=== PATIENT | male | born 1945 | race Caucasian/White ===

== ENCOUNTER 2025-09-11 17:36 | Emergency (ER) | payer OTHER, SELFPAY ==
[2025-09-11 17:42] VITALS: BP 141/73; PULSE 75; TEMP 36.6; O2SAT 98; BMI 29.0
[2025-09-11 18:25] LABS: Hematocrit 45.9 % (42.0-54.0); Hemoglobin 15.5 g/dL (14.0-18.0); Immature Granulocytes Abs Auto 0.01 10^3/uL (0.00-0.03); Immature Granulocytes Pct Auto 0.1 % (0.0-0.5); Lymphocytes Absolute Auto 1.6 10^3/uL (1.2-3.8); Mean Corpuscular HGB Conc 33.8 g/dL (29.9-35.2); Mean Corpuscular Hemoglobin 31.1 pg (25.9-34.0); Mean Corpuscular Volume 92.2 fL (80.0-94.0); Platelet Count 191 10^3/uL (150-450); Red Blood Count 4.98 10^6/uL (4.70-6.10); White Blood Count 8.2 10^3/uL (4.0-11.0)
[2025-09-11 18:38] LABS: Alanine Aminotransferase 15 U/L (16-63); Albumin Globulin Ratio 1.1; Albumin Level 3.8 g/dL (3.4-5.0); Alkaline Phosphatase 87 U/L (46-116); Anion Gap 14.2; Aspartate Amino Transferase 20 U/L (15-37); Blood Urea Nitrogen 28.0 mg/dL (7.0-18.0); Calcium 9.2 mg/dL (8.5-10.1); Carbon Dioxide 31.0 mmol/L (21.0-32.0); Chloride 102 mmol/L (98-107); Estimated GFR (African America >60 (>=60 mL/min/1.73m^2); Estimated GFR (Non-African Ame >60 (>=60 mL/min/1.73m^2); Globulin 3.5 g/dL; Glucose 163 mg/dL (74-106); Potassium 4.2 mmol/L (3.5-5.1); Sodium 143 mmol/L (136-145); Total Protein 7.3 g/dL (6.4-8.2)
[2025-09-11 18:39] LABS: INR 1.10; Partial Thromboplastin Time 27.6 sec (22.3-36.2); Prothrombin Time 11.5 sec (9.0-11.6)
--- OUTSIDE RECORDS SUMMARY | 2025-09-11 18:42 | XMS_ITS | Encounter Summary ---
Author Organization [facility] tem Address [id number] [address] [place] [address] Care Team Providers Care Prefabricator Name Role Phone Debbie Díaz DO Primary Care Provider [phone] Encounter Details DateTypeDepartmentCare Team (Latest Contact Info)Wrzjshliyku89/25/2025Telephone [facility] - Pharmacy Medication Management [address] [place] [address] Santos Mckeon, [facility] [address] [place], [place] [phone]- Social History Tobacco UseTypesPacks/DayYears UsedDateSmoking Tobacco: NeverSmokeless Tobacco: NeverAlcohol UseStandard Drinks/WeekCommentsNever0 (1 standard drink = 0.6 oz pure alcohol)PHQ-2AnswerDate RecordedTotal Dqhnv03110/24/2024UDIT-CAnswerDate RecordedQ1: How often do you have a drink containing alcohol?Never08/24/2025Q2: How many drinks containing alcohol do you have on a typical day when you are drinking?Patient does not drink08/24/2025Q3: How often do you have six or more drinks on one occasion?Never08/24/2025PRAPARE - TransportationAnswerDate RecordedIn the past 12 months, has lack of transportation kept you from medical appointments or from getting medications?No08/24/2025In the past 12 months, has lack of transportation kept you from meetings, work, or from getting things needed for daily living?No08/24/2025HC UtilitiesAnswerDate RecordedIn the past 12 months has the electric, gas, oil, or water company threatened to shut off services in your home?No08/24/2025Housing InstabilityAnswerDate RecordedAre you worried or concerned that in the next two months you may not have stable housing that you own, rent or stay in as a part of a household?No08/24/2025hildcare AnswerDate YhrqisydMefgurqubCxnbzij97/02/2019EmploymentAnswerDate Recorded TnkeliibvjQusbgfk72/02/2019Hunger ScreeningAnswerDate RecordedWithin the past 12 months we worried whether our food would run out before we got money to buy more.Never True08/24/2025Within the past 12 months the food we bought just didn't last and we didn't have money to get more.Never True08/24/2025Purpose - LifeAnswerDate RecordedPurpose and direction in pzdgGzuausj67/21/2021ex and Gender InformationValueDate RecordedSex Assigned at WsfjaWqmi32/16/2019 8:58 PM ESTLegal ZlrHvlq7805/11/2015 11:25 AM EDTGender QwovfugxZcqe84/16/2019 8:58 PM EST Sexual TyxywqnuhyeXygjaxuy37/23/2023 3:33 AM EDTdocumented as of this encounter Miscellaneous Notes * Telephone Encounter - Santos Chaveznimeshkinsey, [facility] - 08/30/2025 10:02 AM EST Message received from inpatient pharmacy patient may benefit from [facility] services because he has beenstarted on Eliquis and also has diabetes. Patient admitted 08/23/25-08/25/25. Patient presented with leg pain and swelling. He did have recent fibula fracture. Venous duplex showed acute left tibioperoneal DVT and CT of chest showed small upper left lobe segmental PE without right heart strain. Patient discharged on Eliquis 10 mg twice daily for seven days and then 5 mg twice daily. For his diabetes he is taking metformin 1000 mg twice daily, glipizide 5 mg twice daily, and pioglitazone 45 mg daily. No recent A1C found in Epic. Patient has [facility] visit on 09/22/25. Called patient to discuss. He reports no issues at this time. [facility]. Appears clot may have been provoked so thinking he will be on3-6 months. 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 Discussed aspirin should be continued and can be taken with Eliquis. Recommend he monitor for unusual bleeding orbruising. Patient does not wish to follow with [facility] at this time. documented in this encounter Plan of Treatment DateTypeDepartmentCare Team (Latest Contact Info)Vjfnvyriyfa00/18/2025 8:45 AM ESTOffice Visit [facility] [address] [place] [address] 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, LOAN SERVICING REPRESENTATIVE-LYE MACHINE OPERATOR [address] [address] documented as of this encounter Goals GoalPatient Goal TypeAssociated ProblemsRecent ProgressPatient-Stated?Author <enter goal here> Whitney Gee, BRIT Note: Evaluation of progress towards goal: home self care and family support documented as of this encounter Visit Diagnoses Not on filedocumented in this encounter Additional Health Concerns AssessmentNoted TimePHQ-9 Depression Total Score: 10:05 AM EST documented as of this encounter Care Teams Team MemberRelationshipSpecialtyStart DateEnd Date Debbie Díaz DO [address] [place] [address] PCP - GeneralFamily Vqzoeqyd35/17/25documented as of this encounter
--- OUTSIDE RECORDS SUMMARY | 2025-09-11 18:42 | XMS_ITS | Clinical Summary ---
Author Organization [employer] tem Address [id number] [address] [place] [address] Care Team Providers Care Labeling Specialist Name Role Phone Debbie Díaz DO Primary Care Provider [phone] Allergies Active AllergyReactionsCriticalityNoted DateComments Sulfamethoxazole-SmdouuqwyycaZknjl18/23/2023EmpagliflozinOther (See Comments) Nmetfp550807EvzwdUbxqpea49/23/2023 Burning sensation MllgprnzIirtvcd97/23/2023 Medications MedicationSigDispense QuantityRefillsLast FilledStart DateEnd DateStatus pioglitazone (ACTOS) 45 mg tablet Indications:22.5mgTake 1 tablet (45 mg total) by mouth in the morning. Indications: 22.5mg.Active ytmlfmke-dimk-bhj-folic acid (swgmmyglvpqm-vaca-ygoxlqhx-folic acid) 3,500-18-0.4 unit-mg-mg tablet,chewable Chew 1 capsule and swallow in the morning.Active metoprolol succinate XL (TOPROL-XL) 25 mg 24 hr tablet Take 1 tablet (25 mg total) by mouth in the morning.12/09/2017Active rosuvastatin (CRESTOR) 10 mg tablet Take 1 tablet (10 mg total) by mouth once daily at bedtime.Active glipiZIDE (GLUCOTROL) 5 mg tablet Take 1 tablet (5 mg total) by mouth in the morning and 1 tablet (5 mg total) in the evening. Take before meals.Active metFORMIN (GLUCOPHAGE) 850 mg tablet Take 1,000 mg by mouth in the morning and 1,000 mg in the evening. Take with meals.Active sennosides-docusate sodium (SENNA WITH DOCUSATE SODIUM) 8.6-50 mg Take 2 tablets by mouth in the morning.Active zinc gluconate 50 mg tablet Take 1 tablet (50 mg total) by mouth in the morning.Active ascorbic acid, vitamin C, (ascorbic acid) 250 mg tablet,chewable Chew 1 tablet and swallow in the morning.Active vitamin E, dl,tocopheryl acet, (vitamin E, dl, acetate,) 180 mg (400 unit) capsule Take 1 capsule (400 Units total) by mouth in the morning.Active apixaban (ELIQUIS DVT-PE TREAT 30D START) 5 mg (74 tabs) tablets,dose pack tablet Take 2 tablets by mouth twice daily for 7 days, then take 1 tablet twice daily 74 tablet 08/24/2025tive gabapentin (NEURONTIN) 300 mg capsule Take 1 capsule (300 mg total) by mouth 3 (three) times a day.08/25/2025 Discontinued(Stop Taking at Discharge) CINNAMON BARK ORAL Take 1 tablet by mouth in the morning. 1,000 mg.08/25/2025Discontinued(Stop Taking at Discharge) pyridoxine, vitamin B6, (B-6) 100 mg tablet Take 1 tablet (100 mg total) by mouth in the morning.08/25/2025Discontinued(Stop Taking at Discharge) riTUXimab (RITUXAN) 10 mg/mL chemo injection Infuse into a venous catheter.08/25/2025Discontinued(Stop Taking at Discharge) cycloPHOSphamide (CYTOXAN) 20 mg/mL chemo injection Infuse into a venous catheter once.08/25/2025Discontinued(Stop Taking at Discharge) acyclovir (ZOVIRAX) 400 mg tablet Take 1 tablet (400 mg total) by mouth in the morning and 1 tablet (400 mg total) before bedtime.08/25/2025Discontinued(Stop Taking at Discharge) alogliptin 25 mg tablet Indications:type 2 diabetes mellitusTake 25 mg by mouth in the morning. Indications: type 2 diabetes mellitus.08/25/2025Discontinued(Stop Taking at Discharge) doxycycline (VIBRA-TABS) 100 mg tablet Take 1 tablet (100 mg total) by mouth in the morning and 1 tablet (100 mg total) before bedtime.08/25/2025Discontinued(Stop Taking at Discharge) mupirocin (BACTROBAN) 2 % ointment Apply 1 Application topically in the morning. Apply on wound on lower leg and blister on finger .08/25/2025Discontinued(Stop Taking at Discharge) cyanocobalamin (vitamin B-12) 1000 MCG tablet Take 1 tablet (1,000 mcg total) by mouth in the morning. Takes 5,000 mg. 08/25/2025Discontinued(Stop Taking at Discharge) NON FORMULARY Take 1 each by mouth in the morning and at bedtime. Med Name: folic acid 400 mcg 08/25/2025Discontinued(Stop Taking at Discharge) acidophilus-pectin, citrus 25 million cell -100 mg tablet Take 1 tablet by mouth daily with breakfast.08/25/2025Discontinued(Stop Taking at Discharge) Active Problems ProblemNoted DateDiagnosed DatePulmonary odrktv6910/23/2024Rectal bleeding 05/05/2023I bleed05/05/20231166Zylhyjgstsz12/31/2023Intractable low back pain 03/28/20232412Gtknvropu77/24/2018Atherosclerosis of coronary artery bypass graft of [place] heart without angina xwusvrue58/08/5810Tshp32/01/2017Diabetes mellitus type 2, controlled Resolved Problems ProblemNoted DateDiagnosed DateResolved DateAcute respiratory failure with hypoxia and lmlhqfryxmo45Shock qgsqxjjgenj51 Diabetes 1.5, managed as type /Unstable gebirl7305/05/2017 05/29/2018Chest pain05/01/HTN (hypertension)06/13/2017 Encounters DateTypeDepartmentCare OeosSbzkqluufqm68/25/2025Telephone [facility] - Pharmacy Medication Management [address] [place] [address] Santos Mckeon, [facility] 08/23/2025 6:31 PM EST - 08/25/2025 2:14 PM ESTHospital Encounter [facility] - [facility] [address] Acute [address] [place] [phone] Robina Carter MD Ibrahim, Rahaf N, MD Amin, Isidro Mccormack MD Single subsegmental pulmonary embolism without acute cor pulmonale (CMS-HCC) (Primary Dx) Discharge Disposition: Home08/22/2025 4:28 PM EST - 08/23/2025 5:28 PM EST Emergency [facility] - Emergency [address] [place] [address] Marcus Reid DO Single subsegmental pulmonary embolism without acute cor pulmonale (CMS-HCC) (Primary Dx) Discharge Disposition: [facility]08/22/2025 2:00 PM EST - 08/22/2025 4:27 PM ESTHospital Encounter [facility] - Vascular [address] [place] [phone] Localized swelling, mass and lump, lower limb, left; Pain of left calf; Closed nondisplaced fracture of lateral malleolus of left fibula, initial encounter Discharge Disposition: Home08/22/20257627Jcdlst88/03/2025 2:20 PM EST - 08/08/2025 4:26 PM ESTEmergency [facility] - Emergency [address] [place] [phone] Closed fracture of left ankle, initial encounter (Primary Dx) Discharge Disposition: Home08/08/2025Travelfrom Last 3 Months Immunizations ImmunizationAdministration DatesNext DueCOVID-19, mRNA, LNP-S, PF, 100mcg/0.5mL Dose01/30/2021,01/02/2021Influenza High Dose Preservative Free IM06/29/2024 Influenza Vaccine, Quadrivalent, Dvyhvmavoq52/24/2023Influenza, High-dose, Rjadxhjvrglj09/27/2023,12/08/2020Influenza, Trivalent, Bhvogvuaqx98/21/2025 Influenza, Cgxhyfjfjob18/22/2021,06/27/2018Pneumococcal Conjugate 20-valent 2RSV, bivalent, protein subunit RSVpreF, diluent reconstituted, 0.5 mL, PF041836Rseb04/21/2021,12/08/2020Zoster Vaccine Secksdsvaqb06/31/2023, 04/19/2022,08/18/2019 Family History Medical HistoryRelationNameCommentsHeart attackBrotherRelationNameStatusComments BrotherDeceasedFatherDeceasedMotherDeceased Social History Tobacco UseTypesPacks/DayYears UsedDateSmoking Tobacco: NeverSmokeless Tobacco: Never Tobacco Cessation:Counseling Given: Not Answered Alcohol UseStandard Drinks/WeekCommentsNever0 (1 standard drink = 0.6 oz pure alcohol)PHQ-2AnswerDate RecordedTotal Uktud74910/24/2024UDIT-CAnswerDate Recorded Q1: How often do you have a drink containing alcohol?Never08/24/2025Q2: How many drinks containing alcohol do you have on a typical day when you are drinking? Patient does not drink08/24/2025Q3: How often do you [...] stay in as a part of a household?No08/24/2025hildcareAnswerDate FqcnjjxaEjpwuqbwhPvojnqx66/02/2019EmploymentAnswerDate RecordedEmploymentUnknown 03/07/2019Hunger ScreeningAnswerDate RecordedWithin the past 12 months we worried whether our food would run out before we got money to buy more.Never True08/24/2025Within the past 12 months the food we bought just didn't last and we didn't have money to get more.Never True08/24/2025Purpose - LifeAnswerDate RecordedPurpose and direction in thmwQrzbvzj10/21/2021ex and Gender Information ValueDate RecordedSex Assigned at BjcquTkci82/16/2019 8:58 PM ESTLegal SexMale 05/11/2015 11:25 AM EDTGender BswvgskuZqrz22/16/2019 8:58 PM ESTSexual GwxyojtikwiIuislcgy32/23/2023 3:33 AM EDT Last Filed Vital Signs Vital SignReadingTime TakenCommentsBlood Zesqihms747/8508/25/2025 12:58 PM EST Sncoe519008/25/2025 12:58 PM KWDFnurjdcnqcz46.7 ??C (98 ??F)08/25/2025 12:58 PM ESTRespiratory Hnkf166408/25/2025 12:58 PM ESTOxygen Hkpokrdzal52%08/25/2025 12:58 PM ESTInhaled Oxygen Concentration--Wfdjee88.4 kg (190 lb 7.6 oz)08/25/2025 4:38 AM WQMKcymtb094.2 cm (5' 7 )08/24/2025 10:07 AM ESTBody Mass Index29.83 08/24/2025 10:07 AM EST Plan of Treatment DateTypeDepartmentCare Team (Latest Contact Info)Eljrklggjer08/18/2025 8:45 AM ESTOffice Visit [facility] [place] [address] [place] [address] 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, 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 [address] [phone] Health MaintenanceDue DateLast DoneCommentsFall Risk Gtsusjcmt01/18/2008COVID-19 Vaccine (2024- season)509/, 12/31/2023, 10/29/2022, Additional history existsTobacco Cqaspztow71/Depression Nhlvckvgu94DTaP,Tdap and Td Vaccines (3 - Td or Tdap) , 12/08/2020Zoster (Shingles) SpugqoxTqgvldzwh95/31/2023, 04/19/2022, 08/18/2019RSV ( or age 60+ yrs)Yqcuevcqi11/01/2025Influenza SrtwcvzUegwqmbot83/21/2025, 06/29/2024, 07/02/2023, Additional history exists Goals GoalPatient Goal TypeAssociated ProblemsRecent ProgressPatient-Stated?Author <enter goal here> Whitney Gee RN Note: Evaluation of progress towards goal: home self care and family support Medical Devices Not on file Procedures Procedure NamePriorityDate/TimeAssociated DiagnosisCommentsBEDSIDE GLUCOSE Ujizise3908/25/2025 12:57 PM EST BEDSIDE BDUWKHWAbbtumk64/20/2025 7:57 AM EST BASIC METABOLIC NYKHIBlftjoh58/20/2025 7:12 AM EST CBC WITH AUTO EQDYYFLNKKSGBuhffdp79/20/2025 7:12 AM EST HEPARIN ANTI XA, QVEIMNIIEJUQILZbeceus77/20/2025 7:12 AM EST PLATELET LKUCNSvbbbov10/20/2025 5:28 AM EST LILHMRWACKBvmbome88/20/2025 5:28 AM EST EXTRA TUBES PST SYEKlozfrd18/20/2025 5:24 AM EST EXTRA HVDHHQfkekwx32/20/2025 5:24 AM EST HEPARIN ANTI XA, VYBPPYXQSIVSRJIatopyj58/19/2025 11:06 PM EST BEDSIDE OJDNBWJMezerov90/19/2025 9:50 PM EST BEDSIDE PSZZVHYZembanv30/19/2025 4:32 PM EST HEPARIN ANTI XA, WEJLESLAUICMTMYxipshq53/19/2025 4:29 PM EST ECHO COMPLETE WO LDMYNVIQFuddqeg45/19/2025 4:22 PM EST BEDSIDE NKHXJDRUdnwnxn88/19/2025 8:14 AM EST HEPARIN ANTI XA, GFXGEFNSSHPCLRAiolixf11/19/2025 7:24 AM EST CBC WITH AUTO DQSZCQIXBSVMPkpvoyf07/19/2025 7:24 AM EST COMPREHENSIVE METABOLIC ENXDUHhphtre02/19/2025 7:24 AM EST PROTIME & DTKTdpnbsj55/18/2025 10:44 PM EST JFMLItylunp19/18/2025 10:44 PM EST PLATELET XJBDPYhvzkug15/18/2025 10:44 PM EST EINLUBCQIURigbscy45/18/2025 10:44 PM EST HEPARIN ANTI XA, KPYWOIBPOBRESTJanowoe22/18/2025 10:44 PM EST PULSE OXIMETRY, LMEUCuxncmi55/18/2025 7:15 PM ESTHEPARIN ANTI XA, UNFRACTIONATED STAT110/23/2024 3:23 PM EST CBC WITH AUTO MKFTNOIHDWTLTTZD42/18/2025 8:18 AM EST BASIC METABOLIC GCKMBKRSV18/18/2025 8:17 AM EST HEPARIN ANTI XA, HVYEMFJDNUKSGXPTOC16/18/2025 8:17 AM EST PLATELET BOBOLUEOZ23/18/2025 4:53 AM EST DWAYUQRWDOQSTP31/18/2025 4:53 AM EST HEPARIN ANTI XA, APXUZBZLPDNCSVTCYC02/17/2025 11:48 PM EST XR ANKLE LT 2 IZZIUPN00/17/2025 6:[address] CTA OIXGDJKDR31/17/2025 6:10 PM EST TROP I, HIGH SENSITIVITY 1 CGQNZTTR68/17/2025 6:06 PM EST ECG 12-HSKTHRXX34/17/2025 5:10 PM ESTEXTRA TUBES BLUE EPRJugzuam88/17/2025 5:06 PM EST PROTIME & INRAdd-On08/22/2025 5:06 PM EST APTTAdd-On08/22/2025 5:06 PM EST EXTRA TPJIHWhyxdoq88/17/2025 5:06 PM EST TROPONIN I, HIGH SENSITIVITY 0 OGBDHNEO72/17/2025 4:55 PM EST TROPONIN I, HIGH SENSITIVITY 0 GUXQBMCK85/17/2025 4:55 PM EST BASIC METABOLIC URIDVJQDJ88/17/2025 4:55 PM EST CBC WITH AUTO SUHFMGHGXYIKIQJT49/17/2025 4:55 PM EST VASC VENOUS DUPLEX LOWER HUZQQIPD63/17/2025 2:57 PM EST Localized swelling, mass and lump, lower limb, left Pain of left calf Closed nondisplaced fracture of lateral malleolus of left fibula, initial encounter XR ANKLE LT MIN 3 DGHFJBM73/03/2025 2:25 PM EST from Last 3 Months Results * (ABNORMAL) Bedside Glucose *Place/Obtain serum glucose if >500 per glucometer. (08/25/2025 12:57PM EST) Only the most recent of5 resultswithin the time period is included. ComponentValueRef RangeTest MethodAnalysis TimePerformed AtPathologist Signature Bedside Glucose (POC)180(H)65 - 99 mg/dL08/25/2025 1:03 PM [facility] (Source)Anatomical Location / LateralityCollection Method / VolumeCollection TimeReceived Timearterial/ndhqsoojg70/20/2025 12:57 PM EST 08/25/2025 1:03 PM EST Narrative Authorizing ProviderResult TypeResult StatusIsidro Aguilar MDPOINT OF CARE TEST ORDERABLESFinal ResultPerforming OrganizationAddressCity/State/ZIP Code Phone Number [facility] [address] [facility] [place] [address], * (ABNORMAL) CBC auto differential (08/25/2025 7:12 AM EST) Only the most recent of4 resultswithin the time period is included. ComponentValueRef RangeTest MethodAnalysis TimePerformed AtPathologist Signature WBC5.74 - 11 10^9/L110/25/2024 7:36 AM [facility] LABORATORYRBC Count4.474.1 - 5.7 10^12/L110/25/2024 7:36 AM [facility] LYDEMOJNJAQzktoriubc86.613 - 17 g/dL08/25/2025 7:36 AM [facility] HCCFQKVDHRZxevvftocj57.739 - 50 %08/25/2025 7:36 AM [facility] WRTMELRBFHNKF3082 - 100 fL08/25/2025 7:36 AM [facility] XYWIGYMIJCXYT20.427 - 34 pg08/25/2025 7:36 AM [facility] LMAOCBBSUUJLID92.532 - 36 g/dL08/25/2025 7:36 AM [facility] DQYPZSROKOCPR82.011.5 - 15 %08/25/2025 7:36 AM [facility] LABORATORYPlatelet Zfgid401(L)150 - 450 10^9/L110/25/2024 7:36 AM [facility] LABORATORYMPV9.37 - 12 fL08/25/2025 7:36 AM [facility] LABORATORYNeutrophils %62.8%08/25/2025 7:36 AM [facility] LABORATORYLymphocytes %21.4%08/25/2025 7:36 AM [facility] LABORATORYMonocytes %11.7%08/25/2025 7:36 AM [facility] LABORATORYEosinophils %3.5%08/25/2025 7:36 AM [facility] LABORATORYBasophils %0.6%08/25/2025 7:36 AM [facility] LABORATORYNeutrophils Absolute (A)3.61.5 - 6.6 10^08/25/2025 7:36 AM [facility] LABORATORYLymphocytes Absolute1.21.0 - 3.5 10^9/L 08/25/2025 7:36 AM [facility] LABORATORYMonocytes Absolute0.7 0.0 - 0.9 10^08/25/2025 7:36 AM [facility] Eosinophils Absolute0.20.0 - 0.4 10^08/25/2025 7:36 AM [facility] LABORATORYBasophils Absolute0.00.0 - 0.2 10^08/25/2025 7:36 AM [facility] LABORATORYDifferential TypeAUTOMATED DIFFERENTIAL 08/25/2025 7:36 AM [facility] LABORATORYSpecimen (Source) Anatomical Location / LateralityCollection Method / VolumeCollection Time Received TimeBloodVenous blood / UnknownVenipuncture / Mlrebzw2508/25/2025 7:12 AM EST08/25/2025 7:22 AM EST Narrative Authorizing ProviderResult TypeResult StatusAli Michael [facility] BLOOD ORDERABLES Final ResultPerforming OrganizationAddressCity/State/ZIP CodePhone Number [facility] [address] [place] [address], [place] [phone] * (ABNORMAL) Anti XA unfractionated heparin (08/25/2025 7:12 AM EST) Only the most recent of8 resultswithin the time period is included. ComponentValueRef RangeTest MethodAnalysis TimePerformed AtPathologist Signature ANTI XA UFH0.71(H)0.30 - 0.70 IU/mL08/25/2025 7:45 AM [facility] LABORATORYComment: Optimal time for testing is 6 hrs post dosage This test is specific for monitoring patients on UFH, and is not recommended for use with other Anti-Xa medications. Specimen (Source)Anatomical Location / LateralityCollection Method / Volume Collection TimeReceived TimeBloodVenous blood / UnknownVenipuncture / Unknown 08/25/2025 7:12 AM EST08/25/2025 7:22 AM EST Narrative Authorizing ProviderResult TypeResult StatusIsidro Aguilar [facility] BLOOD ORDERABLESFinal ResultPerforming OrganizationAddressCity/State/ZIP CodePhone Number [facility] [address] [place] [address], * (ABNORMAL) Basic Metabolic Panel (08/25/2025 7:12 AM EST) Only the most recent of3 resultswithin the time period is included. ComponentValueRef RangeTest MethodAnalysis TimePerformed AtPathologist Signature FOAGDB607649 - 146 mmol/L110/25/2024 7:54 AM [facility] LABORATORYPOTASSIUM3.83.5 - 5.0 mmol/L110/25/2024 7:54 AM [facility] BUFHHAMFCZJYFPMPCL51991 - 109 mmol/L110/25/2024 7:54 AM [facility] LABORATORYCARBON DGXCVYO0458 - 32 mmol/L110/25/2024 7:54 AM [facility] LABORATORYANION GAP85 - 15 mmol/L110/25/2024 7:54 AM [facility] LABORATORYBLOOD UREA WZSUVXYB649 - 27 mg/dL08/25/2025 7:54 AM [facility] LABORATORYCREATININE0.800.60 - 1.30 mg/dL08/25/2025 7:54 AM [facility] LABORATORYComment:METHOD TRACEABLE TO IDMS AICUULNOJRTYFIN535(H)65 - 99 mg/dL08/25/2025 7:54 AM [facility] LABORATORYCALCIUM9.18.5 - 10.5 mg/dL08/25/2025 7:54 AM [facility] LABORATORYEGFR Non-Race Uejznvheq76>=60 ml/min/1.73sq.m110/25/2024 7:54 AM [facility] LABORATORYComment: Reported eGFR is based on the CKD-EPI 2020 equation that does not use a race coefficient. Specimen (Source)Anatomical Location / LateralityCollection Method / Volume Collection TimeReceived TimeBloodVenous blood / UnknownVenipuncture / Unknown 08/25/2025 7:12 AM EST08/25/2025 7:22 AM EST Narrative Authorizing ProviderResult TypeResult StatusGerman HURTADO BLOOD ORDERABLES Final ResultPerforming OrganizationAddressCity/State/ZIP CodePhone Number [facility] [address] [place] [address], [place] [phone] * (ABNORMAL) Platelet count (08/25/2025 5:28 AM EST) Only the most recent of3 resultswithin the time period is included. ComponentValueRef RangeTest MethodAnalysis TimePerformed AtPathologist Signature Platelet Cjleb354(L)150 - 450 10^9/L110/25/2024 6:02 AM [facility] LABORATORYMPV9.37 - 12 fL08/25/2025 6:02 AM [facility] LABORATORYSpecimen (Source)Anatomical Location / LateralityCollection Method / VolumeCollection TimeReceived TimeBloodVenous blood / UnknownVenipuncture / Dhnwkqx5708/25/2025 5:28 AM EST08/25/2025 5:47 AM EST Narrative Authorizing ProviderResult TypeResult StatusRobina HURTADO BLOOD ORDERABLES Final ResultPerforming OrganizationAddressCity/State/ZIP CodePhone Number [facility] [address] [place] [address], * Hemoglobin (08/25/2025 5:28 AM EST) Only the most recent of3 resultswithin the time period is included. ComponentValueRef RangeTest MethodAnalysis TimePerformed AtPathologist Signature Myyadrixbc37.713 - 17 g/dL08/25/2025 6:02 AM [facility] LABORATORYSpecimen (Source)Anatomical Location / LateralityCollection Method / VolumeCollection TimeReceived TimeBloodVenous blood / UnknownVenipuncture / Wkhxbhr4808/25/2025 5:28 AM EST08/25/2025 5:47 AM EST Narrative Authorizing ProviderResult TypeResult StatusRobina HURTADO BLOOD ORDERABLES Final ResultPerforming OrganizationAddressCity/State/ZIP CodePhone Number [facility] [address] [place] [address], * PST TOP (08/25/2025 5:24 AM EST)ComponentValueRef RangeTest MethodAnalysis TimePerformed AtPathologist SignatureExtra TubeAuto Glswdwva51/20/2025 7:01 AM [facility] LABORATORYSpecimen (Source)Anatomical Location / LateralityCollection Method / VolumeCollection TimeReceived TimeBloodVenous blood / Trnggdg8508/25/2025 5:24 AM EST08/25/2025 5:47 AM EST Narrative Authorizing ProviderResult TypeResult StatusIsidro HURTADO BLOOD ORDERABLESFinal ResultPerforming OrganizationAddressCity/State/ZIP CodePhone Number [facility] [address] [place] [address], [place] [phone] * Echo complete W/O contrast (08/24/2025 4:22 PM EST)ComponentValueRef RangeTest MethodAnalysis TimePerformed AtPathologist SignatureLV Systolic Xuwxju73.90mL OUWXURFNE55%FRJWPFCPP4473 - 44 %XCELERALV Diastolic Imtchh31.40mLXCELERALVIDd 4.104.85 - 6.74 cmXCELERALVIDs2.702.86 - 4.32 cmXCELERAIVS1.000.6 - 1.1 cm XCELERAPW0.900.6 - 1.1 cmXCELERALVOT diameter1.60slTICASSXLMS51.70cm/sXCELERA MV TDI E' (medial)5.98cm/sXCELERALA Volume Index29.4mL/x9BMACWNVT/A ratio1.01 XCELERAE wave deceleration wmhv766.00msecXCELERAMV Peak E Jqe592.00cm/sXCELERA MV Peak A Wac650.00cm/sXCELERALA size4.70cmXCELERALA xglwul52.37ks3JXOXXKGUI diastolic dimension (basal)39.0bpCTCYUHGHDAVN6.35cmXCELERAAV peak jtm235.00 cm/sXCELERAAV VTI26.00cmXCELERAAV mean gradient3.00mmHgXCELERAAV peak gradient 6.05mmHgXCELERAMV pressure 1/2 time43.00msXCELERAMV valve area p 1/2 method 5.00io3CBVXAXHVH peak gradient2.53mmHgXCELERALV ESV A2C54.50mLXCELERALV ESV A4C58.50mLXCELERALV RWT 2D43.90XCELERAEcho EF Rplvvwevh60%XCELERALeft Ventricle Ilwp622.192098087120736wFIVMCZYNlulzskvgayztlhj Septum Diastolic Thickness by 0M91qjSZKRPQPFNDI d3.9cmXCELERARA area12.1am5QMVPXJMOtkkef Sinus Valsalva3.60cmXCELERAAscending aorta3.80cmXCELERAAo asc z-score5.06cmXCELERA ZLVIDS-2.08XCELERAZLVIDD-3.32XCELERAAnatomical RegionLateralityModalityChest N/AUltrasoundSpecimen (Source)Anatomical Location / LateralityCollection Method / VolumeCollection TimeReceived Time Narrative 08/24/2025 5:02 PM EST Left Ventricle: Left ventricle is small. Systolic function is normal with an ejection fraction of 60-65%. Left Ventricle Left ventricle is small. Wall thickness is normal. Systolic function is normal with an ejection fraction of 60-65%. No segmental wall motion abnormalities. Grade I diastolic dysfunction (impaired relaxation) is present. Lateral E' is 10.70 cm/s. Medial E' is 5.98 cm/s. Right Ventricle Right ventricular size appears normal. The right ventricular basal diameter is 39.0 mm. Systolic function is normal. Left Atrium Left atrium is normal in size. Left atrium volume index is normal. The left atrial volume index is 29.4 mL/m2. Right Atrium Right atrium is normal in size. The right atrial area is 12.4 cm2. IVC/SVC IVC is not well visualized. Mitral Valve The leaflets are mildly thickened. There is no regurgitation or stenosis. Tricuspid Valve The leaflets are not thickened. There is trace regurgitation. There is no evidence of tricuspid valve stenosis. Insufficient regurgitant jet to assess right ventricular systolic pressure. Aortic Valve The aortic valve is trileaflet. The leaflets are mildly thickened. There is no regurgitation or stenosis. Pulmonic Valve The leaflets are not thickened. There is trace regurgitation. There is no evidence of pulmonic valve stenosis. The peak gradient is 2.53 mmHg. Ascending Aorta The ascending aorta is mildly dilated. Pericardium There is no pericardial effusion. The pericardium has a fat pad. Study Details A complete echo was performed using complete 2D, color flow Doppler and spectral Doppler. During the study the apical, parasternal, subcostal and suprasternal views were captured. Wall Scoring Baseline Score Index: 1.00 The left ventricular wall motion is normal. Authorizing ProviderResult TypeResult StatusIsidro Aguilar [facility] ECHO ORDERABLESFinal Result * (ABNORMAL) Comprehensive metabolic panel (08/24/2025 7:24 AM EST)Component ValueRef RangeTest MethodAnalysis TimePerformed AtPathologist SignatureSODIUM [id number] - 146 mmol/L110/24/2024 8:16 AM [facility] POTASSIUM4.33.5 - 5.0 mmol/L110/24/2024 8:16 AM [facility] [id number] - 109 mmol/L110/24/2024 8:16 AM [facility] LABORATORYCARBON [id number] - 32 mmol/L110/24/2024 8:16 AM [facility] LABORATORYANION GAP75 - 15 mmol/L110/24/2024 8:16 AM EST [facility] LABORATORYBLOOD UREA [id number] - 27 mg/dL08/24/2025 8:16 AM [facility] LABORATORYCREATININE0.960.60 - 1.30 mg/dL 08/24/2025 8:16 AM [facility] LABORATORYComment:METHOD TRACEABLE TO IDMS NGCZUTDPUSHKIDO646(H)65 - 99 mg/dL08/24/2025 8:16 AM [facility] LABORATORYCALCIUM9.38.5 - 10.5 mg/dL08/24/2025 8:16 AM [facility] LABORATORYTOTAL PROTEIN6.16.0 - 8.0 g/dL 08/24/2025 8:16 AM [facility] LABORATORYALBUMIN3.73.2 - 5.3 g/dL08/24/2025 8:16 AM [facility] LABORATORYALKALINE KGPUFBLCTMZ4166 - 130 U/L110/24/2024 8:16 AM [facility] BFEXCLVCZYVIN94<=41 U/L110/24/2024 8:16 AM [facility] LABORATORYALT8<=40 U/L110/24/2024 8:16 AM [facility] LABORATORYBILIRUBIN,TOTAL0.80.3 - 1.2 mg/dL08/24/2025 8:16 AM [facility]ORATORYEGFR Non-Race Kbrqbnzri64>=60 ml/min/1.73sq.m 08/24/2025 8:16 AM [facility] LABORATORYComment: Reported eGFR is based on the CKD-EPI 2020 equation that does not use a race coefficient. Specimen (Source)Anatomical Location / LateralityCollection Method / Volume Collection TimeReceived TimeBloodVenous blood / UnknownVenipuncture / Unknown 08/24/2025 7:24 AM EST08/24/2025 7:42 AM EST Narrative Authorizing ProviderResult TypeResult StatusRobina HURTADO BLOOD ORDERABLES Final ResultPerforming OrganizationAddressCity/State/ZIP CodePhone Number [facility] [address] [place] [address], * (ABNORMAL) APTT (08/23/2025 10:44 PM EST) Only the most recent of2 resultswithin the time period is included. ComponentValueRef RangeTest MethodAnalysis TimePerformed AtPathologist Signature APTT>150(HH)26 - 37 sec08/23/2025 11:31 PM [facility] LABORATORYSpecimen (Source)Anatomical Location / LateralityCollection Method / VolumeCollection TimeReceived TimeBloodVenous blood / UnknownVenipuncture / Gyfhpke1608/23/2025 10:44 PM EST08/23/2025 10:51 PM EST Narrative Authorizing ProviderResult TypeResult StatusRobina HURTADO BLOOD ORDERABLES Final ResultPerforming OrganizationAddressCity/State/ZIP CodePhone Number [facility] [address] [place] [address], * Protime & INR (08/23/2025 10:44 PM EST) Only the most recent of2 resultswithin the time period is included. ComponentValueRef RangeTest MethodAnalysis TimePerformed AtPathologist Signature WCJXLSU22.39.8 - 13.2 sec08/23/2025 11:31 PM [facility] LABORATORYINR1.10.9 - 1. 11:31 PM [facility] LABORATORYSpecimen (Source)Anatomical Location / LateralityCollection Method / VolumeCollection TimeReceived TimeBloodVenous blood / UnknownVenipuncture / Dejsbml3108/23/2025 10:44 PM EST08/23/2025 10:51 PM EST Narrative Authorizing ProviderResult TypeResult StatusRobina HURTADO BLOOD ORDERABLES Final ResultPerforming OrganizationAddressCity/State/ZIP CodePhone Number [facility] [address] [place] [address], * X-ray ankle left 2 views (08/22/2025 6:23 PM EST)Anatomical RegionLaterality ModalityLower Extremities, MSK, AnkleLeftComputed RadiographySpecimen (Source) Anatomical Location / LateralityCollection Method / VolumeCollection Time Received Time08/22/2025 6:37 PM EST Narrative 08/22/2025 6:38 PM EST X-ray ankle left 2 views History of twisting injury. Known fracture. Pain COMPARISON: 08/08/2025 IMPRESSION: Spiral fracture of the distal fibula is appreciated. Alignment is unchanged. No additional fractureis seen. Atherosclerotic disease is noted Finalized by Melissa Maurice MD on 08/22/2025 6:38 PM Procedure Note Melissa Maurice MD - 08/22/2025 X-ray ankle left 2 views History of twisting injury. Known fracture. Pain COMPARISON: 08/08/2025 IMPRESSION: Spiral fracture of the distal fibula is appreciated. Alignment isunchanged. No additional fracture is seen. Atherosclerotic disease isnoted Finalized by Melissa Maurice MD on 08/22/2025 6:38 PM Authorizing ProviderResult TypeResult StatusMaxmelonie Reid [facility] DIAGNOSTIC IMAGING ORDERABLESFinal Result * CT angiogram chest (08/22/2025 6:10 PM EST)Anatomical RegionLateralityModality Lung, Body, Chest, Vascular, Body CoveraN/AComputed TomographySpecimen (Source)Anatomical Location / LateralityCollection Method / VolumeCollection TimeReceived Time08/22/2025 6:47 PM EST Narrative 08/22/2025 6:56 PM EST CTA CHEST COMPARISON: ??None. HISTORY: DVT, chest pain, assess for pulmonary embolism. TECHNIQUE: Omnipaque 350 nonionic contrast injected intravenously without reported complication. Thin section axial images of the thorax obtained with multiplanar reformatted 3-D MIP images of the thorax generated under concurrent physician supervision and reviewed. ??Automatic exposure control (AEC) was utilized. FINDINGS: Acute pulmonary emboli in the anterior left upper lobe segmental branches axial images 283-288, series 3. No central emboli. No evidence for right heart strain. The heart is enlarged. Severe coronaryartery calcifications. Status post CABG. Elevation right hemidiaphragm with right basilar atelectasis. Minimal left basilar atelectasis. No pneumothorax. No pleural or pericardial effusion. IMPRESSION: Acute left upper lobe segmental pulmonary emboli. No evidence for right heart strain. Dr. Vaughan discussed findings of acute pulmonary emboli with Dr. Kaiser on 08/22/2025 at [address] scans at this facility use dose modulation, iterative reconstruction, and/or weight based dosing when appropriate to reduce radiation dose to as low as reasonably achievable. Finalized by Ruben Vaughan MD on 08/22/2025 6:56 PM Procedure Note Ruben Vaughan MD - 08/22/2025 CTA CHEST COMPARISON: None. HISTORY: DVT, chest pain, assess for pulmonary embolism. TECHNIQUE: Omnipaque 350 nonionic contrast injected intravenously without reported complication. Thin section axial images of the thorax obtainedwith multiplanar reformatted 3-D MIP images of the thorax generated underconcurrent physician supervision and reviewed. Automatic exposure control(AEC) was utilized. FINDINGS: Acute pulmonary emboli in the anterior left upper lobe segmental branchesaxial images 283-288, series 3. No central emboli. No evidence for rightheart strain. The heart is enlarged. Severe coronary arterycalcifications. Status post CABG. Elevation right hemidiaphragm with right basilar atelectasis. Minimal left basilar atelectasis. No pneumothorax. No pleural or pericardialeffusion. IMPRESSION: Acute left upper lobe segmental pulmonary emboli. No evidence for rightheart strain. Dr. Vaughan discussed findings of acute pulmonary emboli with Dr. Noe 08/22/2025 at [address] scans at this facility use dose modulation, iterativereconstruction, and/or weight based dosing when appropriate to reduceradiation dose to as low as reasonably achievable. Finalized by Ruben Vaughan MD on 08/22/2025 6:56 PM Authorizing ProviderResult TypeResult StatusMarcus Reid [facility] CT ORDERABLESFinal Result * Troponin I, High Sensitivity 1 Hour (08/22/2025 6:06 PM EST)ComponentValueRef RangeTest MethodAnalysis TimePerformed AtPathologist SignatureTROPONIN I, HIGH SENSITIVITY7<21 ng/L110/22/2024 7:41 PM [facility] Specimen (Source)Anatomical Location / LateralityCollection Method / Volume Collection TimeReceived TimeBloodVenous blood / UnknownVenipuncture / Unknown 08/22/2025 6:06 PM EST08/22/2025 7:08 PM EST Narrative Authorizing ProviderResult TypeResult StatusMaxwell J Buchwalder DOLAB BLOOD ORDERABLESFinal ResultPerforming OrganizationAddressCity/State/ZIP CodePhone Number [address] [place] [address], [place] * ECG 12 lead (08/22/2025 5:10 PM EST)Specimen (Source)Anatomical Location / LateralityCollection Method / VolumeCollection TimeReceived Time08/22/2025 5:10 PM EST Narrative Authorizing ProviderResult TypeResult StatusMaxmelonie Fenger DOECG ORDERABLESFinal ResultPerforming OrganizationAddressCity/State/ZIP CodePhone Number [facility] * Light Blue Top (08/22/2025 5:06 PM EST)ComponentValueRef RangeTest Method Analysis TimePerformed AtPathologist SignatureExtra TubeAuto Resulted 08/22/2025 7:01 PM ESTUNIVERSITY HOSPITALS CLEVEL[facility] MEDICAL CENTERpecimen (Source) Anatomical Location / LateralityCollection Method / VolumeCollection Time Received TimeBloodVenous blood / Hyklknh2308/22/2025 5:06 PM EST08/22/2025 5:06 PM EST Narrative Authorizing ProviderResult TypeResult StatusMaxmelonie Hernandezwalder [facility] BLOOD ORDERABLESFinal ResultPerforming OrganizationAddressty/State/ZIP CodePhone Number [address] [place] [address], [place] * Troponin I, High Sensitivity 0 Hour (08/22/2025 4:55 PM EST)ComponentValueRef RangeTest MethodAnalysis TimePerformed AtPathologist SignatureTROPONIN I, HIGH SENSITIVITY7<21 ng/L110/22/2024 5:40 PM [facility] Specimen (Source)Anatomical Location / LateralityCollection Method / Volume Collection TimeReceived TimeBloodVenous blood / UnknownVenipuncture / Unknown 08/22/2025 4:55 PM EST08/22/2025 5:06 PM EST Narrative Authorizing ProviderResult TypeResult StatusMaxmelonie Hernandezwalder [facility] BLOOD ORDERABLESFinal ResultPerforming OrganizationAddressCity/State/ZIP CodePhone Number [place] [address] [place] [address], [place] * Vas venous duplex lwr single left (08/22/2025 2:57 PM EST)Anatomical Region LateralityModalityVascularLeftUltrasoundSpecimen (Source)Anatomical Location / LateralityCollection Method / VolumeCollection TimeReceived Time08/22/2025 3:01 PM EST Narrative 08/22/2025 4:14 PM EST Right: Common femoral vein is compressible with spontaneous phasic spectral Doppler waveforms. Left: Dilated noncompressible posterior tibial and peroneal veins with hypoechoic intraluminal content and absent spectral Doppler signals. Non- visualized, absent or surgically harvested Great saphenous superficial vein in the thigh. Remaining visualized deep venous segments are compressible with spontaneous phasic spectral Doppler waveforms. Remainingsuperficial veins are compressible. Conclusions: LEFT: ??ACUTE deep tibioperoneal vein thrombosis (DVT).The great saphenous vein is notvisualized or surgically absent.RIGHT: ??NO EVIDENCE of deep vein thrombosis (DVT) of the common femoral vein. Procedure Note Ozzie Vasques, DO - 08/22/2025 Right: Common femoral vein is compressible with spontaneous phasicspectral Doppler waveforms. Left: Dilated noncompressible posterior tibial and peroneal veins withhypoechoic intraluminal content and absent spectral Doppler signals.Non-visualized, absent or surgically harvested Great saphenous superficialvein in the thigh. Remaining visualized deep venous segments are compressible with spontaneous phasic spectralDoppler waveforms. Remaining superficial veins are compressible. Conclusions: LEFT: ACUTE deep tibioperoneal vein thrombosis (DVT).Thegreat saphenous vein is not visualized or surgically absent.RIGHT: NOEVIDENCE of deep vein thrombosis (DVT) of the common femoral vein. Authorizing ProviderResult TypeResult StatusJamie Jason Villarreal PA-CCV VASCULAR ORDERABLESFinal Result * X-ray ankle left minimum 3 views (08/08/2025 2:25 PM EST)Anatomical Region LateralityModalityLower Extremities, MSK, AnkleLeftComputed Radiography Specimen (Source)Anatomical Location / LateralityCollection Method / Volume Collection TimeReceived Time11/12/2024 2:27 PM EST Narrative 08/08/2025 2:28 PM EST HISTORY: Pain, injury COMPARISON: None FINDINGS: Multiple views of the left ankle were obtained. Minimally displaced oblique fracture of the distal fibular metaphysis. No acute dislocation. Mild soft tissue swelling. Calcaneal spurs. IMPRESSION: * ??Minimally displaced oblique fracture of distal fibular metaphysis Finalized by Nixon Peck MD on 08/08/2025 2:28 PM Procedure Note Nixon Peck MD - 08/08/2025 HISTORY: Pain, injury COMPARISON: None FINDINGS: Multiple views of the left ankle were obtained. Minimallydisplaced oblique fracture of the distal fibular metaphysis. No acutedislocation. Mild soft tissue swelling. Calcaneal spurs. IMPRESSION: * Minimally displaced oblique fracture of distal fibular metaphysis Finalized by Nixon Peck MD on 08/08/2025 2:28 PM Authorizing ProviderResult TypeResult StatusAmber Joseph FISH HOUSE WORKER-CNPIMG DIAGNOSTIC IMAGING ORDERABLESFinal Result from Last 3 Months Insurance Advance Directives TypeDate RecordedPatient RepresentativeExplanationDurable Power of Land Clearer Durable Power of Attorney05/09/2023 12:26 PMLiving Will05/09/2023 12:25 PM * Full Code (Latest Code Status on File) Date ActivatedDate ScpkqcvmfybFiwunpji61/18/2025 7:15 PM08/25/2025 4:14 PM * Full Code Date ActivatedDate InactivatedComments05/05/2023 7:27 PM05/06/2023 5:51 PM * Full Code Date ActivatedDate InactivatedComments03/28/2023 12:54 AM03/28/2023 4:17 PM * Full Code Date ActivatedDate InactivatedComments05/05/2017 3:08 PM05/09/2017 4:51 PM * Full Code Date ActivatedDate InactivatedComments05/01/2017 9:04 AM05/02/2017 12:59 PM Care Teams Team MemberRelationshipSpecialtyStart DateEnd Date Debbie Díaz DO [address] [place] [address] PCP - GeneralFamily Iaojgndg76/17/25
--- OUTSIDE RECORDS SUMMARY | 2025-09-11 18:42 | XMS_ITS | Clinical Summary ---
Author Organization [facility] Address [address] [place] [address] Care Team Providers Care Deputy Sheriff Building Guard Name Role Phone Sandra Garcia MD Primary Care Provider + Allergies Active AllergyReactionsCriticalityNoted JvyeCmqzwsddWmccviguKzdnzwo28/23/2023 GvdkvxjdofllbRvoqnSpqukg57/08/6208OetscMynfyld65/23/2023 Burning sensation Sulfamethoxazole-TrimethoprimHives,LwzaVoqrom97/04/2023 Medications MedicationSigDispense QuantityRefillsLast FilledStart DateEnd DateStatus acyclovir (Zovirax) 400 mg tablet Take 400 mg by mouth twice a day.04/02/2023ctive alogliptin (Nesina) 25 mg tablet Take 25 mg by mouth in the morning.04/02/2023ctive aspirin 81 mg EC tablet Take 1 tablet by mouth in the morning.12/08/2020ctive cyanocobalamin (Vitamin B-12) 1,000 mcg tablet Take 1,000 mcg by mouth in the morning.Active cycloPHOSphamide (Cytoxan) 2 gram chemo injection Infuse into a venous catheter.Active doxycycline (Vibra-Tabs) 100 mg tablet Take 100 mg by mouth twice a day.Active folic acid (Folvite) 1 mg tablet Take 3 mg by mouth.04/02/2023ctive furosemide (Lasix) 40 mg tablet Take 40 mg by mouth.11/01/2024tive gabapentin (Neurontin) 300 mg capsule Take 300 mg by mouth 3 times a day.04/02/2023ctive glipiZIDE (Glucotrol) 5 mg tablet Take 5 mg by mouth.04/02/2023ctive acidophilus-pectin, citrus 25 million cell -100 mg tablet Take 1 tablet by mouth with breakfast.Active metFORMIN (Glucophage) 1,000 mg tablet Take 850 mg by mouth with breakfast and with evening meal.Active metoprolol succinate 25 mg capsule,sprinkle,ER 24hr 25 mg.04/02/2023ctive mupirocin (Bactroban) 2 % ointment Apply 1 Application topically in the morning.04/02/2023ctive nitroglycerin (Nitrostat) 0.[address] 0.4 mg under the tongue.07/13/2024ctive omega-3 acid ethyl esters (Lovaza) 1 gram capsule Take 4,000 mg by mouth.12/08/2020ctive pioglitazone (Actos) 45 mg tablet Take 45 mg by mouth in the morning.04/02/2022ctive pyridoxine (B-6) 100 mg tablet Take 100 mg by mouth in the morning.Active riTUXimab (Rituxan) 10 mg/mL injection Infuse into a venous catheter.Active rosuvastatin (Crestor) 10 mg tablet Take 10 mg by mouth in the morning.Active sennosides-docusate sodium (Yolanda-Colace) 8.6-50 mg tablet Take by mouth.12/08/2020ctive ascorbic acid (Vitamin C) 1,000 mg tablet Take 1,000 mg by mouth in the morning.Active alpha tocopherol (Vitamin E) 268 mg (400 unit) capsule Take 400 Units by mouth in the morning.Active Active Problems ProblemNoted DateDiagnosed DatePrimary osteoarthritis involving multiple joints 5Chronic pain pynmhjov35/24/2025ontact dermatitis due to plant 01/27/2025Degenerative disc disease, omcikg5501/27/2025Diabetes mellitus type 2, jtrgbxsoig97/24/2025Essential sxghqvytoavl12/24/2025History of closed head lymvpo1601/27/2025History of coronary artery bypass rdvqhoc4101/27/2025 Bpzhsnfpwotila62/24/2025Lymphoma, large-cell, aeoqlul8101/27/2025Mild cognitive impairment of uncertain or unknown fbqrybjl71/24/2025Noncompliance with medication iqljhvs7401/27/2025Rheumatoid arthritis, sostnhmspuw10/24/2025Right bundle branch block01/27/2025Right sided abdominal pain01/27/2025Ulcer of left ankle01/27/2025GI bleed05/05/20231558Wsyhjnrihiv99/31/2023Rectal bcbnopzw62/31/2023 Intractable low back pain03/28/20236800Mxdlnsjng26/24/2018Atherosclerosis of coronary artery bypass graft of [place] heart without angina qhizxkqm17/08/2017 Pain05/06/2017 Immunizations ImmunizationAdministration DatesNext DueInfluenza, High Dose Seasonal, Preservative Free06/29/2024Influenza, High-dose Seasonal, Quadrivalent, Preservative Free07/02/2023,12/08/2020Influenza, Seasonal, Quadrivalent, Ktsylmxplx58/24/2023Influenza, Avckdazgztg03/22/2021fizer SARS-CoV-2 Figcnflirqu31/03/2022neumococcal Conjugate PCV 2RSV, Adult, Bivalent 01/04/2025Tdap12/24/2020,12/08/2020Zoster, Jtesgkmzomw22/31/2023,04/19/2022 Social History Tobacco UseTypesPacks/DayYears UsedDateSmoking Tobacco: NeverSmokeless Tobacco: Never Tobacco Cessation:Counseling Given: Not Answered Alcohol UseStandard Drinks/WeekCommentsNot Currently0 (1 standard drink = 0.6 oz pure alcohol)CommentsUnknownSex and Gender InformationValueDate Recorded Sex Assigned at BkkyiVvuudkz49/01/2025 10:46 AM EDTLegal EidEwcv5004/03/2022 11:58 PM EDTGender FtljadwoKeqg15/01/2025 10:46 AM EDTSexual OrientationDon't know 05/06/2025 10:46 AM EDT Last Filed Vital Signs Vital SignReadingTime TakenCommentsBlood Szkswrlj513/7604 12:48 PM EDT Utffx343901/31/2025 12:48 PM EDTTemperature--Respiratory Rate--Oxygen Saturation 96%01/31/2025 12:48 PM EDTInhaled Oxygen Concentration--Uofpse30.1 kg (181 lb) 01/31/2025 12:48 PM FVAJktwck780.9 cm (5' 6.5 )01/31/2025 12:48 PM EDTBody Mass Index28.78001/31/2025 12:48 PM EDT Plan of Treatment Health MaintenanceDue DateLast DoneCommentsDiabetes: Hemoglobin A1C1943 Diabetes: Retinopathy Gkfzkfraz48/18/1953epression Edzjfgavs63/18/1955Diabetes: Urine Protein Nermqwrea71/18/1962Fall Risk Srybfziok25/18/2008COVID-19 Vaccine ( season)/, 12/31/2023, 10/29/2022, Additional history existsInfluenza Vaccine (#1)/, 07/02/2023, 10/29/2022, Additional history existsAdult Fkxqrrg98/, 12/08/2020neumococcal Vaccine: 50+ MxzqwTqmhsnksk48/08/2022Zoster Vaccines Ihzrjpzyi15/31/2023, 04/19/2022HIB VaccinesAged OutNo longer eligible based on patient's age to complete this topicHPV VaccinesAged OutNo longer eligible based on patient's age to complete this topicIPV VaccinesAged OutNo longer eligible based on patient's age to complete this topicMeningococcal B VaccineAged OutNo longer eligible based on patient's age to complete this topicMeningococcal VaccineAged OutNo longer eligible based on patient's age to complete this topic Rotavirus VaccinesAged OutNo longer eligible based on patient's age to complete this topic Insurance Care Teams Team MemberRelationshipSpecialtyStart DateEnd Date Sandra Garcia MD [address] [place] [address] PCP - GeneralInternal Medicine05/18/25
--- OUTSIDE RECORDS SUMMARY | 2025-09-11 18:43 | XMS_ITS | Patient Health Record ---
Author Organization [facility] Address [id number] [place], [place] [id number] Care Team Providers Care Game Bird Farmer Name Role Phone Pérez Delgado Primary Care Provider Akbar Schmidt Unavailable [phone] Reason For Referral No Information Plan Of Treatment No Information Insurance Providers Payer Name Payer Address Payer Phone Subscriber Number Group Number Insured Name Patient Relationship to Insured Coverage Start Date Coverage End Date [place] [address] [place] [address] [id number] Jerardo PatiñoRainer - patient is the [facility] [place] [id number] Yanique - patient is the insured
--- OUTSIDE RECORDS SUMMARY | 2025-09-11 18:43 | XMS_ITS | Clinical Summary ---
Author Organization [facility] Address [address] [facility], [address] [place] [address] Care Team Providers Care Crawler Dragline Operator Name Role Phone Pérez Delgado DO Primary Care Provider Unavail able Social History Tobacco UseTypesPacks/DayYears UsedDateSmoking Tobacco: Never AssessedSex and Gender InformationValueDate RecordedSex Assigned at BirthNot on fileLegal Sex Male11/15/2012 1:35 PM ESTGender IdentityNot on fileSexual OrientationNot on file Plan of Treatment Not on file Insurance Care Teams Team MemberRelationshipSpecialtyStart DateEnd Date Pérez Delgado DO PCP - Utdcjqf60/2/14
--- OUTSIDE RECORDS SUMMARY | 2025-09-11 18:43 | XMS_ITS | Patient Health Record ---
Author Organization [facility] [place] Address [address] [place] [address] Care Team Providers Care Drawing Operator Name Role Phone Pérez Delgado DO Primary Care Provider Unavailab le Allergies Allergen (clinical drug ingredient) Drug/Non Drug Allergy documented on EMR Reaction Allergy Type Onset Date Status nka (uncoded)UnknownAllergyActive Reason For Referral No Information Medications Medication SIG (Take, Route, Frequency, Duration) Notes Start Date End Date Status metFORMIN HCl ER 750 MG 1 tablet with evening me al Orally Once a day UnknownFurosemide 20 MG1 tablet Orally Once a dayActiveActos 45TAKE ONE-HALF TABLET BY MOUTH DAILY; Duration: 60ActiveLevemir FlexPenUnknownGabapentin 300 MG 1 capsule Orally Three times a dayUnknownOmega 3-6-9 -OrallyActivePlavix 75TAKE ONE TABLET BY MOUTH DAILY; Duration: 30ActiveJanuvia 50 MG2 tablets Orally Once a dayUnknownCephalexin 500 MG1 capsule Orally Twice a dayActiveLasix 40TAKE ONE TABLET BY MOUTH DAILY; Duration: 30ActiveOmeprazole 40 MG1 capsule Orally Once a dayActiveActos 45 MGTAKE ONE-HALF TABLET BY MOUTH DAILY; Duration: 60Active Tresiba FlexTouch 100 UNIT/MLSubcutaneousActivePioglitazone HCl 45 MG1 tablet Orally Once a dayActiveMetoprolol Succinate ER 25 MG1 tablet Orally Once a day UnknownSimvastatin 20 MG1 tablet in the evening Orally Once a dayUnknown Potassium Chloride ER 20TAKE ONE TABLET BY MOUTH DAILY; Duration: 30Active Potassium Chloride ER 10 MEQTAKE TWO TABLETS BY MOUTH DAILY; Duration: 30Active Plan Of Treatment No Information Insurance Providers Payer Name Payer Address Payer Phone Subscriber Number Group Number Insured Name Patient Relationship to Insured Coverage Start Date Coverage End Date [place]IC[place] [address] [place] [address] [id number] Florentin Patiñonnamdideandre - patient is the [id number] [address] [address] [place] [id number], JackSennamdideandre - patient is the [id number] 2009 Medical (General) History Medical History History ICD Code heart palpitations intestinal polypkidney stonesdiabetesSurgical History Surgery Date(Month/Year) cyst 1982 vascectomy 1977 appendectomy 1958 Hospitalization History Reason Date(Month/Year) see above
--- NOTE | 2025-09-11 20:26 | ED_ITS ---
HPI HPI - General Adult General Chief complaint: GI Bleed Stated complaint: GI BLEED Time Seen by Provider: 09/11/25 17:41 Source: patient Mode of arrival: Wheelchair History of Present Illness HPI narrative: 80-year-old male presents here to the emergency room with chief complaint of bright red blood per rectum. Patient has a history of a left fibular fracture of the left ankle. He has been wearing a walking boot. 2 weeks ago he was diagnosed with a DVT and then found incidentally to have a small PE. At that time he was placed on Eliquis 2 weeks ago. Patient does have a history of internal/external hemorrhoids. He states over the past 2 weeks since starting Eliquis he has noticed increased bleeding with wiping and blood in the toilet when he has bowel movements. He did see his primary care physician on and they told him if he had any dark tarry stool to go to the emergency room. Patient brings in a picture of what appears to be bright red blood in the toilet but states it appeared dark red to him. Patient has no pain no fevers no chills. No known history of diverticulitis. He denies any weakness or shortness of breath. Related Data Previous Rx's ?Medication ?Instructions ?Recorded docusate sodium 100 mg capsule 100 mg PO DAILY #30 cap s 09/11/25 (Colace) witch joseline 50 % topical pads 1 pad topical DAILY #100 ea 09/11/25 (Tucks (witch joseline)) Allergies Allergy/AdvReac Type Severity Reaction Status Date / Time Unable to Assess Allergy Verified 09/11/25 17:54 Review of Systems ROS Status of ROS 10 or more systems reviewed and unremark able except as noted in history and below PFSH PFSH Social History Little interest or pleasure in doing things: not at all Feeling down, depressed, or hopeless: not at all Exam Narrative Exam Narrative: All Systems are negative except as noted/marked.All systems reviewed and otherwise negative Nurses note and vital signs reviewed and patient is not hypoxic. General: The patient appears well and in no apparent distress. Patient is resting comfortably on cart. Skin: Warm, dry, no pallor noted. There is no rash noted. Head: Normocephalic, atraumatic Eye: Normal conjunctiva, no drainage, EOMI. PERRL Ears, Nose, Mouth, and Throat: oral mucosa is moist. Nares patent. Mouth without vesicles. Ear canals patent. Tm's without Erythema Cardiovascular: Regular Rate and Rhythm Respiratory: Patient is in no distress, no accessory muscle use, lungs are clear to auscultation, no wheezing, rales or rhonchi Back: non-tender, no CVA tenderness bilaterally to percussion. : Bright red blood per rectum, no active bleeding, no tenderness of with digital exam known history of internal and external hemorrhoids nonthrombosed hemorrhoid noticed external GI: Normal bowel sounds, no tenderness to palpation, no masses appreciated. No rebound, guarding, or rigidity noted. Musculoskeletal: The patient has no evidence of calf tenderness, no pitting edema, symmetrical pulses noted bilaterally Neurological: A&O x4, normal speech Psychiatric: Cooperative Constitutional Vital Signs, click to edit/add: Last Vital Signs Temp 97.9 F 09/11/25 17:42 Pulse 75 09/11/25 17:42 Resp 18 09/11/25 17:42 BP 141/73 09/11/25 17:42 Pulse Ox 98 09/11/25 17:42 O2 Del Method Room Air 09/11/25 17:42 Course Vital Signs Vital signs: Vital Signs Temperature 97.9 F 09/11/25 17:42 Pulse Rate 75 09/11/25 17:42 Respiratory Rate 18 09/11/25 17:42 Blood Pressure 141/73 09/11/25 17:42 Pulse Oximetry 98 09/11/25 17:42 Oxygen Delivery Method Room Air 09/11/25 17:42 Temperature 97.9 F 09/11/25 17:42 Pulse Rate 75 09/11/25 17:42 Respiratory Rate 18 09/11/25 17:42 Blood Pressure 141/73 09/11/25 17:42 Pulse Oximetry 98 09/11/25 17:42 Oxygen Delivery Method Room Air 09/11/25 17:42 Medical Decision Making MDM Narrative Medical decision making narrative: 80-year-old male presents here to the emergency room with chief complaint of bright red blood per rectum. Patient has a history of a left fibular fracture of the left ankle. He has been wearing a walking boot. 2 weeks ago he was diagnosed with a DVT and then found incidentally to have a small PE. At that t nelly he was placed on Eliquis 2 weeks ago. Patient does have a history of internal/external hemorrhoids. He states over the past 2 weeks since starting Eliquis he has noticed increased bleeding with wiping and blood in the toilet when he has bowel movements. He did see his primary care physician on and they told him if he had any dark tarry stool to go to the emergency room. Patient brings in a picture of what appears to be bright red blood in the toilet but states it appeared dark red to him. Patient has no pain no fevers no chills. No known history of diverticulitis. He denies any weakness or shortness of breath. Patient had presented for a neuroevaluation due to rectal bleeding he has a known history of rectal hemorrhoids. He does have a history of chronic diarrhea as well. He states over the last 2 weeks since starting Eliquis he has had bright red blood and was concerned of dark tarry stool today. Rectal exam was positive for bright red blood did not appreciate any dark tarry stools. CT scan was obtained to rule out any GI bleeding. CT scan was read by radiology as no conclusive features of active GI bleed, mild sigmoid diverticulosis small right and left renal cortical cyst patent aorta with no aneurysm or a small hiatal hernia no free fluid and no abscess or hematoma. Patient's blood work including hemoglobin hematocrit were within normal limits. Patient states this has been occurring for greater than 2 weeks since starting Eliquis. I believe if it was of GI bleed his hemoglobin hematocrit would be affected at this point in time. Patient was told to stop his morning dose of Eliquis and follow-up with primary care physician and asked them what they would like him to do. He is currently taking it for a known DVT at the left lower extremity and also for a small pulmonary embolism that was found incidentally. Patient was given a prescription for Tucks as well as Colace. Follow-up with his primary care physician patient and family member agree with plan of care patient stable to be discharged home Differential Diagnosis Differential Diagnosis: Hemorrhoids, rectal bleeding, diverticulitis, Medical Records Medical records reviewed: Yes I reviewed the patient's medical records Lab Data Lab results reviewed: Yes I reviewed the patient's lab results Labs: Lab Results 09/11/25 09/11/25 Range/Units 18:03 18:10 WBC 8.2 (4.0-11.0) 10^3/uL RBC 4.98 (4.70-6.10) 10^6/uL Hgb 15.5 (14.0-18.0) g/dL Hct 45.9 (42.0-54.0) % MCV 92.2 (80.0-94.0) fL MCH 31.1 (25.9-34.0) pg MCHC 33.8 (29.9-35.2) g/dL RDW 14.3 (11.0-15.0) % Plt Count 191 (150-450) 10^3/uL MPV 10.7 (9.5-13.5) fL Neut % (Auto) 68.1 (43.0-75.0) % Lymph % (Auto) 19.3 L (20.5-60.0) % [place] % (Auto) 10.1 (1.7-12.0) % Eos % (Auto) 1.8 (0.9-7.0) % Baso % (Auto) 0.6 (0.2-2.0) % Neut # (Auto) 5.6 (1.4-6.5) 10^3/uL Lymph # (Auto) 1.6 (1.2-3.8) 10^3/uL [place] # (Auto) 0.8 (0.3-0.8) 10^3/uL Eos # (Auto) 0.2 (0.0-0.7) 10^3/uL Baso # (Auto) 0.1 (0.0-0.1) 10^3/uL Abs Immat Gran (auto) 0.01 (0.00-0.03) 10^3/uL Imm/Tot Granulo (auto) 0.1 (0.0-0.5) % PT 11.5 (9.0-11.6) sec INR 1.10 APTT 27.6 (22.3-36.2) sec Sodium 143 (136-145) mmol/L Potassium 4.2 (3.5-5.1) mmol/L Chloride 102 (98-107) mmol/L Carbon Dioxide 31.0 (21.0-32.0) mmol/L Anion Gap 14.2 BUN 28.0 H (7.0-18.0) mg/dL Creatinine 1.15 (0.70-1.30) mg/dL Est GFR ( Amer) >60 (>=60 mL/min/1.73m^2) Est GFR (Non-Af Amer) >60 (>=60 mL/min/1.73m^2) BUN/Creatinine Ratio 24.3 Glucose 163 H (74-106) mg/dL Calcium 9.2 (8.5-10.1) mg/dL Total Bilirubin 0.6 (0.2-1.0) mg/dL AST 20 (15-37) U/L ALT 15 L (16-63) U/L Alkaline Phosphatase 87 (46-116) U/L Total Protein 7.3 (6.4-8.2) g/dL Albumin 3.8 (3.4-5.0) g/dL Globulin 3.5 g/dL Albumin/Globulin Ratio 1.1 Stool Occult Blood Positive A ECG Data Interpretation: 1747 EKG shows a sinus rhythm with a right bundle branch block with a rate of 77 bpm SD interval 190 ms QRS duration 142 ms no STEMI Discharge Plan Discharge Chief Complaint: GI Bleed Clinical Impression: Hemorrhoids, Rectal bleeding Patient Disposition: Home, Self-Care Time of Disposition Decision: 20:19 Condition: Good Prescriptions / Home Meds: New Tucks (witch joseline) 50 % pads, medicated 1 pad topical DAILY Qty: 100 0RF docusate sodium [Colace] 100 mg capsule 100 mg PO DAILY Qty: 30 0RF Print Language: Georgian Instructions: Rectal Bleeding (ED) Additional Instructions: Stop Eliquis for tomorrow's dose and follow-up with your primary care physician in the morning. you may use stool softeners to help alleviate any extra strain with bowel movements Referrals: Cristino Díaz DO [Primary Care Provider] - 1 week
== END 2025-09-11 20:38 | disposition home or self-care (01) ==
PROVIDERS: Physician Assistant; Emergency Provider Emergency Medicine; PCP Family Medicine
DX: K62.5 Hemorrhage of anus and rectum (principal); K64.9 Unspecified hemorrhoids; S82.832D Other fracture of upper and lower end of left fibula, subsequent encounter for closed fracture with routine healing; X58.XXXD Exposure to other specified factors, subsequent encounter; I82.409 Acute embolism and thrombosis of unspecified deep veins of unspecified lower extremity; I26.99 Other pulmonary embolism without acute cor pulmonale; Z79.01 Long term (current) use of anticoagulants
CPT/HCPCS: 36415; 74174; 80053; 85025; 85610; 85730; 99285; G0328; Q9967